=== PATIENT | male | born 1980 | race Caucasian/White ===

== ENCOUNTER 2017-01-10 19:38 | Emergency (ER) | payer SELFPAY ==
[~2017-01-10] VITALS: Ht 172.7 cm; Wt 73.0 kg
[2017-01-10 19:51] VITALS: Ht 172.7 cm; Wt 73.0 kg
== END 2017-01-10 19:55 | disposition left against medical advice (07) ==
LOC: FTE 19:38
DX: Z53.21 Procedure and treatment not carried out due to patient leaving prior to being seen by health care provider (principal)